=== PATIENT | female | born 1990 | race Caucasian/White ===

== ENCOUNTER 2018-08-26 15:37 | Emergency (ER) | payer OTHER ==
[~2018-08-26] VITALS: Ht 160 cm; Wt 65.8 kg
[~2018-08-26 15:37] MED LIST: AFRIN15 ML NS; AMITRIPTYLINE H25 M2; AZITHROMYCIN250 MG PO; BIRTH CONTROL; CALCIUM 500 +1 EAC5; HEARTBURN RELI150 M1 PO; IBUPROFEN 800800 M1 PO; IBUPROFEN 800800 MG PO; IRON159 MG; MACROBID 100 M100 M1 PO; NORCO 5-325 TA1 EACH PO; NORFLEX100 MG PO; NUVARING VAGIN1 EACH; PENICILLIN VK500 MG PO; PREDNISONE 20 M20 MG PO; PRENATAL; PROMETHAZINE D480 ML PO; PROPRANOLOL 1010 M1; ULTRAM 50MG TAB50 MG PO
[2018-08-26] MEDS ORDERED: TOPAMAX 100 MG100 MG PO (15:58)
[2018-08-26] MEDS ORDERED: ADDERALL 30 MG30 MG PO (15:58)
[2018-08-26] MEDS ORDERED: TOPAMAX50 MG PO (15:58)
[2018-08-26] MEDS ORDERED: XANAX 0.5 MG0.5 MG PO (15:59)
[2018-08-26] MEDS ORDERED: ABILIFY 2 MG2 M1 PO (15:59)
[2018-08-26] MEDS ORDERED: VALIUM5 MG PO (15:59)
[2018-08-26] MEDS ORDERED: SYNTHROID50 MCG PO (16:00)
[2018-08-26] MEDS ORDERED: LAMICTAL100 MG PO (16:00)
[2018-08-26] MEDS ORDERED: SUMATRIPTA6 MG/0.5 M SUBQ (16:00)
[2018-08-26] MEDS ORDERED: COMPAZINE10 MG PO (16:01)
[2018-08-26] MEDS ORDERED: PROZAC 20 MG20 MG PO (16:01)
[2018-08-26] MEDS ORDERED: IMITREX 50 MG T50 MG PO (16:01)
[2018-08-26 16:33] LABS: AMP/METHAMP POSITIVE (Negative); BARBITURATES Negative (Negative); BENZODIAZEPINES POSITIVE (Negative); COCAINE Negative (Negative); METHADONE Negative (Negative); OPIATES Negative (Negative); PCP Negative (Negative); THC Negative (Negative)
[2018-08-26 16:40] LABS: URINE BILIRUBIN NEGATIVE (Negative); URINE BLOOD NEGATIVE (Negative); URINE CLARITY CLEAR; URINE COLOR YELLOW; URINE GLUCOSE-RANDOM NEGATIVE (Negative); URINE KETONES NEGATIVE (Negative); URINE LEUKOCYTES-REFLEX 1+ (Negative); URINE NITRITE-REFLEX NEGATIVE (Negative); URINE PROTEIN NEGATIVE (Negative); URINE UROBILINOGEN 0.2 E.U./dl (0.2-1.0)
[2018-08-26 16:46] LABS: MUCUS 0-3 Light strn/LPF (None Seen); SQUAMOUS >10 Many /LPF (0-3)
[2018-08-26 16:47] LABS: BACTERIA-REFLEX >30 Many /HPF (None Seen); CASTS None Seen /LPF (None Seen); URINE WBC-REFLEX 0-5 Rare /HPF (0-5)
[2018-08-26 16:48] LABS: CRYSTALS None Seen /LPF (None Seen); URINE RBC 0-2 Rare /HPF (0-2)
[2018-08-26] MEDS ORDERED: PREDNISONE 20 M20 MG PO (17:01)
[2018-08-26] MEDS ORDERED: NORCO 5-325 TA1 EACH PO (17:12)
[2018-08-26 17:30] VITALS: BP 107/64
== END 2018-08-26 17:31 | disposition home or self-care (01) ==
LOC: M.ERS 15:37
PROVIDERS: Nurse Practitioner Family
DX: S93.492A Sprain of other ligament of left ankle, initial encounter (principal); J45.909 Unspecified asthma, uncomplicated; F41.9 Anxiety disorder, unspecified; F32.9 Major depressive disorder, single episode, unspecified; E03.9 Hypothyroidism, unspecified; F90.9 Attention-deficit hyperactivity disorder, unspecified type; G43.909 Migraine, unspecified, not intractable, without status migrainosus; Z79.899 Other long term (current) drug therapy; Z88.1 Allergy status to other antibiotic agents; W18.39XA Other fall on same level, initial encounter; Y93.89 Activity, other specified; Y92.89 Other specified places as the place of occurrence of the external cause; Y99.8 Other external cause status